=== PATIENT | male | born 1945 | race Caucasian/White ===

== ENCOUNTER 2022-09-21 13:04 | Emergency (ER) | payer OTHER, MEDICARE ==
[2022-09-21] MEDS ORDERED: NORCO 5/325 MG PO ONE (14:19)
[2022-09-21] MEDS ORDERED: NORCO 5/325 MG ONE (14:34)
[2022-09-21 15:07] VITALS: O2SAT 98
--- NOTE | 2022-09-21 15:27 | XRAY ---
Indication: Pain. Fracture. Multiple contiguous images obtained through the left appears sagittal and coronal reformatted images obtained. Comparison: CT abdomen/pelvis May 27, 2019 Left hip articulation intact without abnormal effusion. Osseous structures remain demineralized with stable small spurring greater trochanter and inferior ischial tuberosity. No acute fracture, suspicious bony lesions, or osseous destructive process. New small fluid collection tracks just deep to the gluteus kyler measuring at least 1.4 cm in thickness and 5.5 cm in width. Lack of IV contrast precludes further characterization. Remaining visualized noncontrasted soft tissues again demonstrates enlarged prostate gland and mild scattered vascular calcifications. Impression: 1. New small nonspecific fluid collection deep to gluteus kyler. Finding possibly posttraumatic in the right clinical setting. No acute fracture, dislocation, or osseous destructive process. 2. Again osteopenia, degenerative changes, enlarged prostate gland, and scattered arteriosclerotic disease.
--- NOTE | 2022-09-21 16:08 | ERPHSYRPT ---
- History of Present Illness Time Seen by Provider: 09/21/22 16:04 Source: patient Patient Subjective Stated Complaint: pt here for left hip pain for 3-4 days, worse this morning, he states he is unable to bear wt on leg, he did fall abbout two weeks ago, with no injury at this time Triage Nursing Assessment: pt alert, resp easy, assist of one from wc to bed , no bruising or abrasions noted Physician History: Patient is 77-year-old male presents to our ED for evaluation of left hip pain. Patient fell approximately 2 weeks ago. Since then he has been experiencing progressive left hip pain. Patient states pain is constant. Pain worse with weightbearing. Pain improves with rest. However patient unable to walk. Patient is normally active. No other injury sustained during his fall. No BHT or LOC. No neck pain or cervical spine tenderness. C-spine cleared clinically. Portions of this note were created with voice recognition technology. There may be grammatical, spelling, punctuation or sound alike errors Timing/Duration: today Severity: moderate Modifying Factors: Improves With: nothing Associated Symptoms: denies symptoms Allergies/Adverse Reactions: Iodinated Contrast Media Allergy (Severe, Verified 09/21/22 13:14) rash all over Penicillins Allergy (Mild, Verified 09/21/22 13:14) Hives Sulfa (Sulfonamide Antibiotics) Allergy (Mild, Verified 09/21/22 13:14) Hives Home Medications: Aspirin 81 mg PO DAILY 08/18/13 [History] Atorvastatin Calcium [Lipitor] 10 mg PO HS 08/18/13 [History] Finasteride 5 mg [Proscar 5 MG] 5 mg PO DAILY 08/18/13 [History] Ginseng Root [Ginseng] 100 mg PO DAILY 08/18/13 [History] Metoprolol Succinate 25 mg Xl* [Toprol-Xl 25MG Tablets] 50 mg PO DAILY 08/18/13 [History] Multivitamin [Multivitamins] 1 each PO DAILY 08/18/13 [History] Tamsulosin HCl 0.4 mg [Flomax 0.4 MG] 0.4 mg PO HS 08/18/13 [History] Amlodipine Besylate 5 mg [Norvasc 5 mg] 5 mg PO DAILY 09/21/22 [History] Clopidogrel Bisulfate [PLAVIX Tablet] 75 mg PO DAILY 09/21/22 [History] Losartan Potassium [Cozaar] 100 mg PO DAILY 09/21/22 [History] Meloxicam 7.5 mg DAILY 09/21/22 [History] PANTOPRAZOLE 40 mg Tablet [Protonix 40MG Tablet] 40 mg PO QAM 09/21/22 [History] Hx Tetanus, Diphtheria Vaccination/Date Given: (UNKNOWN) Hx Influenza Vaccination/Date Given: Yes Hx Pneumococcal Vaccination/Date Given: No Immunizations Up to Date: Yes Travel Risk - International Travel Have you traveled outside of the country in past 3 weeks: No - Coronavirus Screening Are you exhibiting any of the following symptoms?: No - Vaccine Status Have you recieved a Covid-19 vaccination: Yes Esthetician/Spa Coordinator: Unknown - Vaccination Dates Date of 2cond Vaccination (if applicable): 2020 Dates if Unknown: ? - Review of Systems Constitutional: No Symptoms, No Fever, No Chills Eyes: No Symptoms Ears, Nose, & Throat: No Symptoms Respiratory: No Symptoms, No Cough, No Dyspnea Cardiac: No Symptoms, No Chest Pain, No Edema, No Syncope Abdominal/Gastrointestinal: No Symptoms, No Abdominal Pain, No Nausea, No Vomiting, No Diarrhea Genitourinary Symptoms: No Symptoms, No Dysuria Musculoskeletal: No Symptoms, No Back Pain, No Neck Pain Skin: No Symptoms, No Rash Neurological: No Symptoms, No Dizziness, No Focal Weakness, No Sensory Changes Psychological: No Symptoms Endocrine: No Symptoms Hematologic/Lymphatic: No Symptoms Immunological/Allergic: No Symptoms All Other Systems: Reviewed and Negative - Past Medical History Pertinent Past Medical History: Yes Neurological History: No Pertinent History ENT History: No Pertinent History Cardiac History: Hypertension Respiratory History: No Pertinent History Endocrine Medical History: No Pertinent History Musculoskeletal History: No Pertinent History GI Medical History: Hernia History: No Pertinent History Psycho-Social History: No Pertinent History Male Reproductive Disorders: Prostate Problems Other Medical History: TONSIL CANCER, TONSILLECTOMY - Past Surgical History Past Surgical History: Yes Neuro Surgical History: No Pertinent History Cardiac: No Pertinent History Respiratory: No Pertinent History Gastrointestinal: Hernia Repair Genitourinary: No Pertinent History Musculoskeletal: No Pertinent History Male Surgical History: No Pertinent History Other Surgical History: THROAT SURGERY - Social History Smoking Status: Former smoker Exposure to second hand smoke: No Drug Use: none Patient Lives Alone: No - Nursing Vital Signs Nursing Vital Signs: Initial Vital Signs Pulse Rate 88 09/21/22 14:04 Blood Pressure 175/92 09/21/22 14:04 O2 Sat by Pulse Oximetry 95 09/21/22 14:04 Pain Scale Pain Intensity 8 - Physical Exam General Appearance: no apparent distress, alert Eye Exam: PERRL/EOMI, eyes nml inspection Ears, Nose, Throat Exam: normal ENT inspection, TMs normal, pharynx normal, moist mucous membranes Neck Exam: normal inspection, non-tender, supple, full range of motion Respiratory Exam: normal breath sounds, lungs clear, airway intact, No respiratory distress Cardiovascular Exam: regular rate/rhythm, normal heart sounds, normal peripheral pulses Gastrointestinal/Abdomen Exam: soft, normal bowel sounds, No tenderness, No mass Back Exam: normal inspection, normal range of motion, No CVA tenderness, No vertebral tenderness Extremity Exam: normal inspection, normal range of motion, pelvis stable, other (Tenderness to palpation left gluteus) Neurologic Exam: alert, oriented x 3, cooperative, normal mood/affect, sensation nml, No motor deficits Skin Exam: normal color, warm, dry, No rash Lymphatic Exam: No adenopathy SpO2 Interpretation: normal SpO2: 98 O2 Delivery: Room Air - Course Nursing assessment & vital signs reviewed: Yes - CT Exams Lower Extremity CT Interpretation: Tele-radiologist Report (New small fluid collection tracks deep to the gluteus kyler measuring 1.4 cm in thickness and 5.5 cm in width.) Ordered Tests: Active Orders 24 hr Category Date Time Status LOWER EXTREMITY WO CONTRAST [CT] Stat Exams 09/21/22 14:18 Completed CBC W DIFF Stat Lab 09/21/22 16:34 Completed CMP Stat Lab 09/21/22 16:34 Received Medication Summary Discontinued Medications Generic Name Dose Route Start Last Admin Trade Name Freq PRN Reason Stop Dose Admin Hydrocodone Bitart/Acetaminophen 1 tab 09/21/22 14:19 09/21/22 14:35 Hydrocodone/Apap 5/325 1 Tab Tablet PO 09/21/22 14:20 1 tab STAT ONE Administration Hydrocodone Bitart/Acetaminophen Confirm 09/21/22 14:34 Hydrocodone/Apap 5/325 1 Tab Tablet Administered 09/21/22 14:35 Dose 1 tab .ROUTE .[facility] Lab/Rad Data: Laboratory Result Diagrams 09/21/22 16:34 Laboratory Results 09/21/22 Range/Units 16:34 WBC 9.3 (4.0-10.5) x10^3/uL RBC 3.72 L (4.1-5.6) x10^6/uL Hgb 10.8 L (12.5-18.0) g/dL Hct 32.4 L (42-50) % MCV 87.1 (78-100) fL MCH 29.0 (26-32) pg MCHC 33.3 (32-36) g/dL RDW 12.9 (11.5-14.0) % Plt Count 184 (150-450) x10^3/uL MPV 8.6 (7.5-11.0) fL Gran % 84.9 H (36.0-66.0) % Immature Gran % (Auto) 0.2 (0.00-0.4) % Nucleat RBC Rel Count 0.0 (0.00-0.1) % Eos # (Auto) 0 (0-0.5) x10^3/uL Immature Gran # (Auto) 0.02 (0.00-0.03) x10^3u/L Absolute Lymphs (auto) 0.51 L (1.0-4.6) x10^3/uL Absolute Monos (auto) 0.85 (0.0-1.3) x10^3/uL Absolute Nucleated RBC 0.00 (0.00-0.01) x10^3u/L Lymphocytes % 5.5 L (24.0-44.0) % Monocytes % 9.2 (0.0-12.0) % Eosinophils % 0.0 (0.00-5.0) % Basophils % 0.2 (0.0-0.4) % Absolute Granulocytes 7.85 H (1.4-6.9) x10^3/uL Basophils # 0.02 (0-0.4) x10^3/uL - Progress Progress: improved Progress Note: Case discussed with Dr. Ansari who advises transfer to an outside facility with orthopedic services and or interventional radiology for drainage of the fluid collection observed on today's CAT scan. Plan of care discussed with patient and his who is at the bedside. They agree to transfer to any local hospital that is capable of managing our patients condition. Case discussed with Dr. Cho, ER physician at [facility] who accepts transfer. Portions of this note were created with voice recognition technology. There may be grammatical, spelling, punctuation or sound alike errors 09/21/22 16:44 77-year-old male presents to our ED for evaluation of left hip pain. Patient fell approximately 2 weeks ago. Since then patient has been experiencing progressive left hip pain. Patient unable to ambulate at this time due to pain. Complexity of problem addressed is moderate. Patient experiencing acute left hip pain complicating patient's ability to ambulate. This is leaving our patient with a functional disability Complex of data reviewed and analyzed is moderate. Patient's served as independent historian due to patient's level of discomfort. Patient received a CAT scan of the left hip as well as laboratory work-up. Patient management discussed with Dr. Ansari who advised transfer to outside hospital. Case discussed with ER physician at [facility] who accepts transfer. Risk of complications and or risk morbidity/mortality patient management is high. Patient received oral pain medication/[place] for pain control. Patient requires hospitalization. Patient will be transferred to [facility] for further evaluation and treatment. Patient reassessed. He is resting comfortably. Vital stable. Pain controlled. Significant other at bedside. They voiced no other complaints or concerns at this time. Portions of this note were created with voice recognition technology. There may be grammatical, spelling, punctuation or sound alike errors 09/21/22 16:50 Counseled pt/family regarding: lab results, diagnosis, rad results - Departure Departure Disposition: Transfer Clinical Impression: Muscle fluid collection, Enlarged prostate, Left hip pain Condition: Stable Critical Care Time: No Referrals: SUMAN ANSARI MD [Primary Care Provider] - Follow up/PCP as directed
[2022-09-21 16:11] VITALS: BP 141/73; PULSE 79
[2022-09-21 16:38] LABS: Absolute Neutrophil Ct (ANC) 7.85 x10^3/uL (1.4-6.9); BASOPHIL % 0.2 % (0.0-0.4); Basophil (Absolute #) 0.02 x10^3/uL (0-0.4); Eosinophil (Absolute #) 0 x10^3/uL (0-0.5); Hematocrit 32.4 % (42-50); Hemoglobin 10.8 g/dL (12.5-18.0); IMMATURE GRAN # 0.02 x10^3u/L (0.00-0.03); IMMATURE GRAN % 0.2 % (0.00-0.4); Lymphocyte (Absolute #) 0.51 x10^3/uL (1.0-4.6); Lymphocytes % 5.5 % (24.0-44.0); Mean Cell Volume 87.1 fL (78-100); Mean Corpuscular Hgb Concent. 33.3 g/dL (32-36); Mean Platelet Volume 8.6 fL (7.5-11.0); Monocyte (Absolute #) 0.85 x10^3/uL (0.0-1.3); Monocytes % 9.2 % (0.0-12.0); Neutrophil % 84.9 % (36.0-66.0); Platelet Count 184 x10^3/uL (150-450); Red Blood Count 3.72 x10^6/uL (4.1-5.6); Red Cell Distribution Width 12.9 % (11.5-14.0); White Blood Count 9.3 x10^3/uL (4.0-10.5)
[2022-09-21 16:44] LABS: INFLUENZA A NEGATIVE (NEGATIVE); INFLUENZA B NEGATIVE (NEGATIVE); RESPIRATORY SYNCTIAL VIRUS NEGATIVE (NEGATIVE); SARS-CoV-2 Xpert Express NEGATIVE (NEGATIVE)
[2022-09-21 16:56] LABS: ALBUMIN 3.7 g/dL (3.5-5.0); ALKALINE PHOSPHATASE 67 U/L (38-126); ANION GAP 12.1 MEQ/L (5-15); BLOOD UREA NITROGEN 16 mg/dL (9-20); CHLORIDE 101 mmol/L (98-107); Calcium 8.6 mg/dL (8.4-10.2); Carbon Dioxide 27 mmol/L (22-30); Creatinine 1 0.85 mg/dL (0.66-1.25); EST GLOMERULAR FILTRATION RATE > 60.0 ML/MIN; Glucose 107 mg/dL (74-106); Potassium 3.6 mmol/L (3.5-5.1); SGOT/AST 31 U/L (17-59); SGPT/ALT 29 U/L (0-50); SODIUM 136 mmol/L (137-145); Total Protein 6.4 g/dL (6.3-8.2)
[2022-09-21 17:30] LABS: Slide Review 1 YES
== END 2022-09-21 17:34 | disposition short-term general hospital (02) ==
LOC: ED 13:04
DX: S70.02XA Contusion of left hip, initial encounter (principal); W19.XXXA Unspecified fall, initial encounter; N40.0 Benign prostatic hyperplasia without lower urinary tract symptoms; M25.552 Pain in left hip; I10 Essential (primary) hypertension; Z79.02 Long term (current) use of antithrombotics/antiplatelets; Z79.899 Other long term (current) drug therapy; Z20.828 Contact with and (suspected) exposure to other viral communicable diseases
CPT/HCPCS: 0241U; 36415; 73700; 80053; 85025; 99284; A9270-GY